=== PATIENT | female | born 1990 ===

== ENCOUNTER 2023-09-11 05:13 | Inpatient (IN) ==
[2023-09-11] MEDS ORDERED: LIDOCAINE 1% LOCAL 20 ML VIAL INFIL PRN (06:12)
[2023-09-11] MEDS ORDERED: OXYTOCIN 30 UNITS/NSS 30 UNITS/500 ML BAG IV PRN ×2 (06:12→17:52)
--- NOTE | 2023-09-11 06:48 | Labor Progress Brief Note ---
Date of Service September 11, 2023 Subjective 33yo @ 37w2d, presents with ROM at 0400. Ctx Q2-3, uncomfortable but tolerable. No VB, good FM. Preg c/b IUGR 5% and fibroids up to 6cm, posterior. Assessment & Plan (1) IUGR (intrauterine growth restriction) affecting care of mother: Plan: Augment. Epidural PRN. Admission and Anticipated Discharge Date Admission Date: September 11, 2023 Physical Exam Genitourinary: ROM clear FHT Ct 1 [place] Q2-3 Cvx /-2 VTX by US Results & Data Vital Signs (Past 12 Hours) Vital Signs Temp Pulse Resp BP O2 Del Method 09/11/23 05:42 99.0 F 18 Room Air 09/11/23 05:36 18 09/11/23 05:36 99.0 F 18 09/11/23 05:36 99.0 F 93 H 18 133/82 Coding Level of Care Code None Diagnoses IUGR (intrauterine growth restriction) affecting care of mother O36.5990
[2023-09-11 06:50] LABS: Hematocrit (blood only) 36.2 % (37.0-47.0); Hemoglobin 12.7 g/dl (12.0-16.0); Mean Corpuscular Hemoglobin 33.8 pg (25.0-34.0); Mean Corpuscular Hgb Conc 35.1 g/dL (32.0-36.0); Mean Corpuscular Volume 96.3 fL (80.0-100.0); Mean Platelet Volume 10.9 fL (9.4-12.4); Platelet Count 183 K/uL (130-400); RDW Coefficient of Variation 13.9 % (11.5-14.5); RDW Standard Deviation 48.3 fL (36.4-46.3); Red Blood Count 3.76 M/uL (4.20-5.40)
[2023-09-11] MEDS: LACTATED RINGER'S 1,000 ML IV PRN (08:45)
[2023-09-11] MEDS: OXYTOCIN 30 UNITS/NSS 30 UNITS/500 ML BAG IV PRN (08:48)
--- NOTE | 2023-09-11 08:58 | History & Physical Report ---
Date of Service September 11, 2023 Assessment & Plan (1) Uterine fibroid during , antepartum: (2) IUGR (intrauterine growth restriction) affecting care of mother: (3) Supervision of normal first : Plan 33 y/o female currently at 37w2d with an HANANE 09/30/2023 as determined by LMP, who is here following spontaneous rupture of membranes. Continue augmentation of labor Epidural PRN Monitor heart tracing, category 1 Admission and Anticipated Discharge Date Admission Date: September 11, 2023 History of Present Illness Primary Care Provider: NO PCP 33 y/o female currently at 37w2d with an HANANE 09/30/2023 as determined by LMP, who is here following spontaneous rupture of membranes. complicated by: IUGR EFW 5%, posterior fibroids up to 6cm Had regular appointments with OB (+) Contractions (+) movement (+) Fluid loss (-) Vaginal bleeding External FHT and external uterine monitors used: Category 1 tracing OB Labs: Blood Type O Positive 02/21/23 Antibody Screen NEGATIVE 02/21/23 Hemoglobin 12.2 g/dl (12.0-16.0) 07/11/23 Hematocrit 35.8 % (37.0-47.0) L 07/11/23 Mean Corpuscular Volume 87.1 fL (80.0-100.0) 02/21/23 Platelet Count 241 K/uL (130-400) 02/21/23 Rubella IgG Antibody Immune (Immune) 02/21/23 Rapid Plasma Reagin Nonreactive (Nonreactive) 02/21/23 Hepatitis B Surface Antigen. NON-REACTIVE (NON-REACTIVE) 02/21/23 Hepatitis C Antibody (EIA) NON-REACTIVE (NON-REACTIVE) 02/21/23 HIV (1&2) Ag and Ab Confirmation NON-REACTIVE (NON-REACTIVE) 02/21/23 Glucose 1 Hour 50 gm Load 132 mg/dl (70-130) H 04/18/23 OB Optional Labs: Chlamydia trachomatis RNA Not Detected (NotDetected) 02/21/23 Neisseria gonorrhoeae RNA Not Detected (NotDetected) 02/21/23 Labs Reviewed: cfdna-low risk--mln Allergies Allergy/AdvReac Type Severity Reaction Status Date / Time No Known Allergies Allergy Verified 09/11/23 05:41 Home Medications Medication Instructions Recorded Confirmed Type PNV no.[id number] 1 tab PO DAILY 02/15/23 09/11/23 History [ Gummies] Patient History Medical History Lazy eye Heart murmur Surgical History S/P eye surgery lazy eye Family History Aunt Breast cancer Grandmother (Maternal) Lung cancer Mother delivery patient born 2 months early Denies family history of Ovarian cancer Colorectal cancer Social History (Updated 02/15/23 @ 10:58 by Araceli Antonio) Smoking Status: Never smoker Do You Dip or Chew Tobacco: No; Hx Alcohol Use: No Hx Substance Use: No Preferred Language: Portuguese Communication Ability: Effective Environmental Auditor Required: No Beliefs That Will Affect Care: None marital status: marital status details: Hansel Ortiz (37) [phone] Current Living Situation: Spouse Current Living Situation Comment: House with current occupational status: employed current occupation: [employer] Patient Other Information That Helps Us Care for You: No Feels Safe at Home: Yes Safety Concerns: Feels Safe At This Time Assistive Devices: Glasses 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 No acute distress Cardiac: Regular rate and rhythm, no murmurs appreciated Respiratory: Lungs clear to auscultation bilaterally, No increased work of breathing Abdominal: Soft, non-tender. Bowel sounds present. Gravid uterus. Extremities: No lower extremity edema, calves non-tender bilaterally FHT: Category 1 tracing, baseline rate 150 with moderate variability, contractions Q2-3 minutes Results & Data Vital Signs (Past 12 Hours) Vital Signs Temp Pulse Resp BP O2 Del Method 09/11/23 07:30 18 09/11/23 07:30 36.8 C 18 Room Air 09/11/23 07:21 81 09/11/23 07:21 121/76 09/11/23 07:15 18 09/11/23 07:15 36.8 C 18 09/11/23 05:42 37.2 C 18 Room Air 09/11/23 05:36 18 09/11/23 05:36 37.2 C 18 09/11/23 05:36 37.2 C 93 H 18 133/82 Supervising Physician Co-Signing Physician Notes Resident Physician Supervision Note: I interviewed and examined the patient. Discussed with Dr. Deleon and agree with findings and plan as documented in the note. Any exceptions or clarifications are listed here: Patient presents and evaluated by Dr. Bennett with gross rom at 37 weeks. cephalic by bedside ultrasound. complicated by iugr with most recent efw 5%/AC 3% on 09/04 with s/d ratios in the 75-90%, and posterior uterine mass 6.3x3x2.4cc noted on 08/08. She was john every two to three minutes when she arrived. she has an unfavorable cervix--1cm/long per Dr. Bennett . She ordered her to start with pitocin. epidural on demand. Fetus is category one. Anticipate vaginal delivery. Peds aware. Documented By: Brenda Almazan MD, FACOG Resident Activity Tracking Resident Involvement: Resident Care Provided Care Provided: OB Delivery
[2023-09-11] MEDS ORDERED: ROPIVACAINE 0.5% PF 5 MG/ML 20 ML VIAL EPI PRN (09:35)
[2023-09-11] MEDS ORDERED: NALOXONE HCL 0.4 MG/1 ML VIAL/CARP IV PRN (09:35)
[2023-09-11] MEDS ORDERED: NALBUPHINE HCL 5 MG in SYRINGE 0 ML IV PRN (09:35)
[2023-09-11] MEDS ORDERED: LIDOCAINE 2% MPF LOCAL 5 ML VIAL EPI PRN (09:35)
[2023-09-11] MEDS ORDERED: NALOXONE HCL 1 MG in SODIUM CHLORIDE 0.9% 1,000 ML IV PRN (09:35)
[2023-09-11] MEDS ORDERED: diphenhydrAMINE 50 MG/ML VIAL IV PRN (09:35)
[2023-09-11] MEDS ORDERED: ePHEDrine sulfate 50 MG/ML AMP IV PRN (09:35)
--- NOTE | 2023-09-11 09:36 | Anesthesiology Consultation ---
Date of Service September 11, 2023 Assessment & Plan (1) Encounter for pre-operative examination: Chart Review Chart Review: Patient NOT seen in Pre Admission Testing and Acceptable Risk for Labor Epidural Consults Requested none History Height/Weight Height: 5 ft Weight: 66.678 kg Allergies Allergy/AdvReac Type Severity Reaction Status Date / Time No Known Allergies Allergy Verified 09/11/23 05:41 Medications Home Medications Medication Instructions Recorded Confirmed Last Taken PNV no.[id number] 1 tab PO DAILY 02/15/23 09/11/23 09/10/23 [ Gummies] Active Medications Generic Name Dose Route Start Last Admin Trade Name Freq PRN Reason Stop Dose Admin Lactated Ringer's 1,000 mls @ 125 mls/hr 09/11/23 06:12 09/11/23 08:45 Lr IV 09/13/23 06:11 999 mls/hr .Q8H PRN Administration L&D Protocol Protocol Oxytocin 30 units in 500 mls @ 2 mls/hr 09/11/23 06:48 09/11/23 08:48 Pitocin 30 Units/Nss IV 09/13/23 06:47 0.12 units/hr .Q24H PRN 2 mls/hr Labor Induction/Augmentation Administration Protocol 0.12 UNITS/HR Past Medical History Medical History Lazy eye Heart murmur Past Family History Family History Aunt Breast cancer Grandmother (Maternal) Lung cancer Mother delivery patient born 2 months early Denies family history of Ovarian cancer Colorectal cancer Past Surgical History Surgical History S/P eye surgery lazy eye Social History Smoking Status: Never smoker Do You Dip or Chew Tobacco: No Hx Alcohol Use: No Hx Substance Use: No Physical Exam Vital Signs Last Vital Signs Temp 98.2 F 09/11/23 07:30 Pulse 79 09/11/23 08:52 Resp 18 09/11/23 07:30 BP 124/73 09/11/23 08:52 O2 Del Method Room Air 09/11/23 07:30 Testing Laboratory Results 09/11/23 06:38 Blood Type O Positive 09/11/23 06:38 Antibody Screen NEGATIVE 09/11/23 06:38
[2023-09-11] MEDS: fentANYL 2 MCG/ML BUPIVacaine 0.125%-NSS 100ML BAG EPI PRN (09:59)
[2023-09-11] MEDS: BUPIVACAINE 0.25% PF 30 ML VIAL EPI PRN (10:01)
[2023-09-11] MEDS: LIDOCAINE 2%/EPINEPHRINE 1:200,000 20 ML PF EPI STA (10:01)
--- NOTE | 2023-09-11 11:24 | Labor Progress Brief Note ---
Date of Service September 11, 2023 Subjective comfortable with epidural. aware i am taking over care. Assessment & Plan (1) PROM (premature rupture of membranes): (2) 37 weeks gestation of : (3) IUGR (intrauterine growth restriction) affecting care of mother: Plan pitocin infusing. fhts categ 2, will need to try position change and see if fhts improve. discussed with patient. if variables persist this early in labor, will place iupc and plan amnioinfusion as next step. Admission and Anticipated Discharge Date Admission Date: September 11, 2023 Physical Exam Constitutional: WD/WN, vitals as above Genitourinary: Manual OB Exam: + cervical dilation (1-2cm), + cervical effacement (75%) and + station (no pressure of cephalic against cx. pit at 8) -2 OB Exam Monitor Tracing: + external FHT monitor used, + external uterine monitor used (q2-4), + category I, + normal FHT variability and + variable decelerations Results & Data Vital Signs (Past 12 Hours) Vital Signs Temp Pulse Resp BP Pulse Ox O2 Del Method 09/11/23 11:18 98 09/11/23 11:18 87 09/11/23 11:16 82 09/11/23 11:16 121/59 L 09/11/23 11:15 90 09/11/23 11:15 83 09/11/23 11:13 100 09/11/23 11:13 81 09/11/23 11:08 100 09/11/23 11:08 77 09/11/23 11:03 100 09/11/23 11:03 83 09/11/23 11:00 18 09/11/23 11:00 18 09/11/23 10:58 100 09/11/23 10:58 77 09/11/23 10:58 108/59 L 09/11/23 10:53 100 09/11/23 10:53 85 09/11/23 10:48 100 09/11/23 10:48 79 09/11/23 10:44 78 09/11/23 10:44 105/56 L 09/11/23 10:43 100 09/11/23 10:43 79 09/11/23 10:38 100 09/11/23 10:38 74 09/11/23 10:33 100 09/11/23 10:33 80 04/01/24 10:30 18 09/11/23 10:30 18 09/11/23 10:28 100 09/11/23 10:28 80 09/11/23 10:28 97/55 L 09/11/23 10:23 100 09/11/23 10:23 74 09/11/23 10:18 100 09/11/23 10:18 77 09/11/23 10:13 100 09/11/23 10:13 85 09/11/23 10:13 82 09/11/23 10:13 101/59 L 09/11/23 10:11 75 09/11/23 10:11 101/57 L 09/11/23 10:10 18 09/11/23 10:10 18 09/11/23 10:09 85 09/11/23 10:09 104/56 L 09/11/23 10:08 18 09/11/23 10:08 18 09/11/23 10:08 100 09/11/23 10:08 82 09/11/23 10:07 82 09/11/23 10:07 107/51 L 09/11/23 10:06 18 09/11/23 10:06 18 09/11/23 10:05 81 09/11/23 10:05 98/53 L 09/11/23 10:04 18 09/11/23 10:04 18 09/11/23 10:03 100 09/11/23 10:03 91 H 09/11/23 10:03 102/53 L 09/11/23 10:02 18 09/11/23 10:02 18 09/11/23 10:01 78 09/11/23 10:01 102/54 L 09/11/23 10:00 18 09/11/23 10:00 18 09/11/23 09:59 94 H 09/11/23 09:59 107/55 L 09/11/23 09:58 18 09/11/23 09:58 18 09/11/23 09:58 100 09/11/23 09:58 84 09/11/23 09:57 79 09/11/23 09:57 116/53 L 09/11/23 09:53 100 09/11/23 09:53 82 09/11/23 09:48 100 09/11/23 09:48 85 09/11/23 09:43 100 09/11/23 09:43 104 H 09/11/23 08:52 79 09/11/23 08:52 124/73 09/11/23 07:30 18 09/11/23 07:30 98.2 F 18 Room Air 09/11/23 07:21 81 09/11/23 07:21 121/76 09/11/23 07:15 18 09/11/23 07:15 98.2 F 18 09/11/23 05:42 99.0 F 18 Room Air 09/11/23 05:36 18 09/11/23 05:36 99.0 F 18 09/11/23 05:36 99.0 F 93 H 18 133/82 Coding Level of Care Code None Diagnoses PROM (premature rupture of membranes) O42.90 37 weeks gestation of Z3A.37 IUGR (intrauterine growth restriction) affecting care of mother O36.5990
--- NOTE | 2023-09-11 12:22 | Labor Progress Brief Note ---
Date of Service September 11, 2023 Subjective pt comfortable, persistent variables noted, remote from delivery Assessment & Plan (1) 37 weeks gestation of : (2) PROM (premature rupture of membranes): (3) IUGR (intrauterine growth restriction) affecting care of mother: Plan these are variable decels noted intrapartum, remote from delivery. pitocin infusing. will see if improve/resolve with amnioinfusion. If not, may not be abl e to proceed with induction after PROM due to intolerance. Will guide pit based on mvus. Admission and Anticipated Discharge Date Admission Date: September 11, 2023 Physical Exam Constitutional: WD/WN, vitals as above Genitourinary: Manual OB Exam: + cervical dilation (1-2cm), + cervical effacement 80% and + station -2 OB Exam Monitor Tracing: + external FHT m onitor used, + external uterine monitor used, + intra-uterine pressure catheter used (iupc placed, caused cx trauma therefore bright red blood noted), + category II, + normal FHT variability and + variable decelerations amnioinfusion begun, plan ns 500cc bolus by gravity and then 180cc/hr on pump Results & Data Vital Signs (Past 12 Hours) Vital Signs Temp Pulse Resp BP Pulse Ox O2 Del Method 09/11/23 12:13 100 09/11/23 12:13 80 09/11/23 12:13 112/66 09/11/23 12:12 87 L 09/11/23 12:12 89 09/11/23 12:08 98 09/11/23 12:08 96 H 09/11/23 12:03 98 09/11/23 12:03 82 09/11/23 11:59 77 09/11/23 11:59 112/63 09/11/23 11:58 100 09/11/23 11:58 78 09/11/23 11:53 99 09/11/23 11:53 76 09/11/23 11:48 100 09/11/23 11:48 75 09/11/23 11:43 100 09/11/23 11:43 76 09/11/23 11:43 112/59 L 09/11/23 11:38 100 09/11/23 11:38 80 09/11/23 11:35 92 09/11/23 11:35 79 09/11/23 11:33 100 09/11/23 11:33 81 09/11/23 11:30 18 09/11/23 11:30 98.2 F 18 09/11/23 11:30 18 09/11/23 11:30 18 09/11/23 11:28 100 09/11/23 11:28 83 09/11/23 11:28 78 09/11/23 11:28 120/61 09/11/23 11:23 82 09/11/23 11:18 98 09/11/23 11:18 87 09/11/23 11:16 82 09/11/23 11:16 121/59 L 09/11/23 11:15 90 09/11/23 11:15 83 09/11/23 11:13 100 09/11/23 11:13 81 09/11/23 11:08 100 09/11/23 11:08 77 09/11/23 11:03 100 09/11/23 11:03 83 09/11/23 11:00 18 09/11/23 11:00 18 09/11/23 10:58 100 09/11/23 10:58 77 09/11/23 10:58 108/59 L 09/11/23 10:53 100 09/11/23 10:53 85 09/11/23 10:48 100 09/11/23 10:48 79 09/11/23 10:44 78 09/11/23 10:44 105/56 L 09/11/23 10:43 100 09/11/23 10:43 79 09/11/23 10:38 100 09/11/23 10:38 74 09/11/23 10:33 100 09/11/23 10:33 80 09/11/23 10:30 18 09/11/23 10:30 18 09/11/23 10:28 100 09/11/23 10:28 80 09/11/23 10:28 97/55 L 09/11/23 10:23 100 09/11/23 10:23 74 09/11/23 10:18 100 09/11/23 10:18 77 09/11/23 10:13 100 09/11/23 10:13 85 09/11/23 10:13 82 09/11/23 10:13 101/59 L 09/11/23 10:11 75 09/11/23 10:11 101/57 L 09/11/23 10:10 18 09/11/23 10:10 18 09/11/23 10:09 85 09/11/23 10:09 104/56 L 09/11/23 10:08 18 09/11/23 10:08 18 09/11/23 10:08 100 09/11/23 10:08 82 09/11/23 10:07 82 09/11/23 10:07 107/51 L 09/11/23 10:06 18 09/11/23 10:06 18 09/11/23 10:05 81 09/11/23 10:05 98/53 L 09/11/23 10:04 18 09/11/23 10:04 18 09/11/23 10:03 100 09/11/23 10:03 91 H 09/11/23 10:03 102/53 L 09/11/23 10:02 18 09/11/23 10:02 18 09/11/23 10:01 78 09/11/23 10:01 102/54 L 09/11/23 10:00 18 09/11/23 10:00 18 09/11/23 09:59 94 H 09/11/23 09:59 107/55 L 09/11/23 09:58 18 09/11/23 09:58 18 09/11/23 09:58 100 09/11/23 09:58 84 09/11/23 09:57 79 09/11/23 09:57 116/53 L 09/11/23 09:53 100 09/11/23 09:53 82 09/11/23 09:48 100 09/11/23 09:48 85 09/11/23 09:43 100 09/11/23 09:43 104 H 09/11/23 09:30 18 09/11/23 09:30 98.2 F 18 09/11/23 08:52 79 09/11/23 08:52 124/73 09/11/23 07:30 18 09/11/23 07:30 98.2 F 18 Room Air 09/11/23 07:21 81 09/11/23 07:21 121/76 09/11/23 07:15 18 09/11/23 07:15 98.2 F 18 09/11/23 05:42 99.0 F 18 Room Air 09/11/23 05:36 18 09/11/23 05:36 99.0 F 18 09/11/23 05:36 99.0 F 93 H 18 133/82 Coding Level of Care Code None Diagnoses 37 weeks gestation of Z3A.37 PROM (premature rupture of membranes) O42.90 IUGR (intrauterine growth restriction) affecting care of mother O36.5990
[2023-09-11] MEDS: BUPIVACAINE 0.25% PF 30 ML VIAL EPI STA (12:27)
[2023-09-11] MEDS: fentaNYL citrate PF 100 MCG/2 ML VIAL ONE (12:27)
[2023-09-11] MEDS: ePHEDrine sulfate 50 MG/ML AMP ONE (12:27)
[2023-09-11] MEDS: LIDOCAINE 2%/EPINEPHRINE 1:200,000 20 ML PF ONE (12:27)
[2023-09-11] MEDS: BUPIVACAINE 0.25% PF 30 ML VIAL ONE (12:27)
[2023-09-11] MEDS: fentANYL 2 MCG/ML BUPIVacaine 0.125%-NSS 100ML BAG ONE (12:27)
[2023-09-11] MEDS: SODIUM CHLORIDE 0.9% PF INJ 10 ML VIAL ONE (12:27)
[2023-09-11] MEDS: fentaNYL citrate PF 100 MCG/2 ML VIAL EPI STA (12:28)
[2023-09-11] MEDS: SODIUM CHLORIDE 0.9% PF INJ 10 ML VIAL EPI STA (12:28)
[2023-09-11] MEDS ORDERED: NURSING L&D Epidural Breakthrough Pain Update ONE (14:22)
[2023-09-11] MEDS: SODIUM CHLORIDE 0.9% PF INJ 10 ML VIAL EPI PRN (14:38)
[2023-09-11] MEDS: fentaNYL citrate PF 100 MCG/2 ML VIAL EPI PRN (14:39)
--- NOTE | 2023-09-11 14:40 | Anesthesia Procedure Note ---
Date of Service September 11, 2023 Anesthesia Epidural Re-Dose Vital Signs Temp Pulse Resp BP Pulse Ox O2 Del Method 98.2 F 77 18 121/57 L 100 Room Air 09/11/23 11:30 09/11/23 14:38 09/11/23 14:00 09/11/23 14:29 09/11/23 14:38 09/11/23 07:30 Notes Pain Intensity: 6 Dilatation (cm): 7.0 Effacement (%): 100 Called by nursing to evaluate epidural as the patient is having increased pain. The epidural was re-dosed with the following medications (all medications via epidural route) after negative aspiration of the epidural catheter for CSF/HEME. 0.125% Bupivacaine (8ml) with 100 mcg Fentanyl After Epidural Re-Dose Mental Status: alert / awake / arousable Pain: improving with treatment Airway Patency, RR, SpO2: stable & adequate BP & HR: stable & adequate
--- NOTE | 2023-09-11 16:24 | Labor Progress Brief Note ---
Date of Service September 11, 2023 Subjective pt feels some pressure Assessment & Plan (1) 37 weeks gestation of : (2) PROM (premature rupture of membranes): (3) IUGR (intrauterine growth restriction) affecting care of mother: Plan begin 2nd stage. fhts categ 1. Admission and Anticipated Discharge Date Admission Date: September 11, 2023 Physical Exam Constitutional: WD/WN, vitals as above Genitourinary: Manual OB Exam: + cervical dilation 10 cm, + cervical effacement 100% and + station + 3 OB Exam Monitor Tracing: + external FHT monitor used, + external uterine monitor used (q2 pit at 6. ), + category I and + normal FHT variability Results & Data Vital Signs (Past 12 Hours) Vital Signs Temp Pulse Resp BP Pulse Ox O2 Del Method 09/11/23 16:18 100 09/11/23 16:18 113 H 09/11/23 16:13 100 09/11/23 16:13 85 09/11/23 16:13 120/70 09/11/23 16:08 100 09/11/23 16:08 87 09/11/23 16:03 100 09/11/23 16:03 82 09/11/23 16:00 18 09/11/23 16:00 18 09/11/23 15:59 78 09/11/23 15:59 121/73 09/11/23 15:58 100 09/11/23 15:58 83 09/11/23 15:53 100 09/11/23 15:53 81 09/11/23 15:48 100 09/11/23 15:48 78 09/11/23 15:45 78 09/11/23 15:45 121/76 09/11/23 15:43 100 09/11/23 15:43 81 09/11/23 15:38 100 09/11/23 15:38 79 09/11/23 15:33 100 09/11/23 15:33 88 09/11/23 15:30 18 09/11/23 15:30 98.2 F 18 09/11/23 15:29 75 09/11/23 15:29 112/60 09/11/23 15:28 100 09/11/23 15:28 78 09/11/23 15:23 100 09/11/23 15:23 81 09/11/23 15:18 100 09/11/23 15:18 80 09/11/23 15:14 76 09/11/23 15:14 110/58 L 09/11/23 15:13 100 09/11/23 15:13 81 09/11/23 15:08 100 09/11/23 15:08 81 09/11/23 15:03 100 09/11/23 15:03 81 09/11/23 15:00 18 09/11/23 15:00 18 09/11/23 14:59 72 09/11/23 14:59 108/55 L 09/11/23 14:58 100 09/11/23 14:58 75 09/11/23 14:53 100 09/11/23 14:53 72 09/11/23 14:48 100 09/11/23 14:48 70 09/11/23 14:43 100 09/11/23 14:43 72 09/11/23 14:43 117/58 L 09/11/23 14:38 100 09/11/23 14:38 77 09/11/23 14:33 100 09/11/23 14:33 83 09/11/23 14:30 18 09/11/23 14:30 18 09/11/23 14:29 69 09/11/23 14:29 121/57 L 09/11/23 14:28 100 09/11/23 14:28 72 09/11/23 14:23 100 09/11/23 14:23 76 09/11/23 14:18 100 09/11/23 14:18 79 09/11/23 14:15 93 09/11/23 14:15 77 09/11/23 14:13 100 09/11/23 14:13 77 09/11/23 14:08 98 09/11/23 14:08 78 09/11/23 14:05 94 09/11/23 14:05 83 09/11/23 14:03 99 09/11/23 14:03 79 09/11/23 14:00 18 09/11/23 14:00 18 09/11/23 13:59 70 09/11/23 13:59 129/76 09/11/23 13:58 98 09/11/23 13:58 84 09/11/23 13:53 98 09/11/23 13:53 77 09/11/23 13:48 98 09/11/23 13:48 88 09/11/23 13:43 100 09/11/23 13:43 88 09/11/23 13:43 84 09/11/23 13:43 118/75 09/11/23 13:38 98 09/11/23 13:38 78 09/11/23 13:33 99 09/11/23 13:33 79 09/11/23 13:30 18 09/11/23 13:30 18 09/11/23 13:29 76 09/11/23 13:29 112/74 09/11/23 13:28 100 09/11/23 13:28 84 09/11/23 13:28 114/75 09/11/23 13:23 99 09/11/23 13:23 77 09/11/23 13:18 98 09/11/23 13:18 83 09/11/23 13:13 99 09/11/23 13:13 78 09/11/23 13:13 75 09/11/23 13:13 109/69 09/11/23 13:08 100 09/11/23 13:08 80 09/11/23 13:03 99 09/11/23 13:03 86 09/11/23 12:58 100 09/11/23 12:58 84 09/11/23 12:58 114/71 09/11/23 12:53 100 09/11/23 12:53 77 09/11/23 12:48 100 09/11/23 12:48 77 09/11/23 12:43 100 09/11/23 12:43 76 09/11/23 12:43 111/65 09/11/23 12:38 100 09/11/23 12:38 88 09/11/23 12:33 100 09/11/23 12:33 105 H 09/11/23 12:28 100 09/11/23 12:28 74 09/11/23 12:28 105/59 L 09/11/23 12:23 100 09/11/23 12:23 87 09/11/23 12:18 100 09/11/23 12:18 82 09/11/23 12:13 100 09/11/23 12:13 80 09/11/23 12:13 112/66 09/11/23 12:12 87 L 09/11/23 12:12 89 09/11/23 12:08 98 09/11/23 12:08 96 H 09/11/23 12:03 98 09/11/23 12:03 82 09/11/23 12:00 18 09/11/23 12:00 18 09/11/23 11:59 77 09/11/23 11:59 112/63 09/11/23 11:58 100 09/11/23 11:58 78 09/11/23 11:53 99 09/11/23 11:53 76 09/11/23 11:48 100 09/11/23 11:48 75 09/11/23 11:43 100 09/11/23 11:43 76 09/11/23 11:43 112/59 L 09/11/23 11:38 100 09/11/23 11:38 80 09/11/23 11:35 92 09/11/23 11:35 79 09/11/23 11:33 100 09/11/23 11:33 81 09/11/23 11:30 18 09/11/23 11:30 98.2 F 18 09/11/23 11:30 18 09/11/23 11:30 18 09/11/23 11:28 100 09/11/23 11:28 83 09/11/23 11:28 78 09/11/23 11:28 120/61 09/11/23 11:23 82 09/11/23 11:18 98 09/11/23 11:18 87 09/11/23 11:16 82 09/11/23 11:16 121/59 L 09/11/23 11:15 90 09/11/23 11:15 83 09/11/23 11:13 100 09/11/23 11:13 81 09/11/23 11:08 100 09/11/23 11:08 77 09/11/23 11:03 100 09/11/23 11:03 83 09/11/23 11:00 18 09/11/23 11:00 18 09/11/23 10:58 100 09/11/23 10:58 77 09/11/23 10:58 108/59 L 09/11/23 10:53 100 09/11/23 10:53 85 09/11/23 10:48 100 09/11/23 10:48 79 09/11/23 10:44 78 09/11/23 10:44 105/56 L 09/11/23 10:43 100 09/11/23 10:43 79 09/11/23 10:38 100 09/11/23 10:38 74 09/11/23 10:33 100 09/11/23 10:33 80 09/11/23 10:30 18 09/11/23 10:30 18 09/11/23 10:28 100 09/11/23 10:28 80 09/11/23 10:28 97/55 L 09/11/23 10:23 100 09/11/23 10:23 74 09/11/23 10:18 100 09/11/23 10:18 77 09/11/23 10:13 100 09/11/23 10:13 85 09/11/23 10:13 82 09/11/23 10:13 101/59 L 09/11/23 10:11 75 09/11/23 10:11 101/57 L 09/11/23 10:10 18 09/11/23 10:10 18 09/11/23 10:09 85 09/11/23 10:09 104/56 L 09/11/23 10:08 18 09/11/23 10:08 18 09/11/23 10:08 100 09/11/23 10:08 82 09/11/23 10:07 82 09/11/23 10:07 107/51 L 09/11/23 10:06 18 09/11/23 10:06 18 09/11/23 10:05 81 09/11/23 10:05 98/53 L 09/11/23 10:04 18 09/11/23 10:04 18 09/11/23 10:03 100 09/11/23 10:03 91 H 09/11/23 10:03 102/53 L 09/11/23 10:02 18 09/11/23 10:02 18 09/11/23 10:01 78 09/11/23 10:01 102/54 L 09/11/23 10:00 18 09/11/23 10:00 18 09/11/23 09:59 94 H 09/11/23 09:59 107/55 L 09/11/23 09:58 18 09/11/23 09:58 18 09/11/23 09:58 100 09/11/23 09:58 84 09/11/23 09:57 79 09/11/23 09:57 116/53 L 09/11/23 09:53 100 09/11/23 09:53 82 09/11/23 09:48 100 09/11/23 09:48 85 09/11/23 09:43 100 09/11/23 09:43 104 H 09/11/23 09:30 18 09/11/23 09:30 98.2 F 18 09/11/23 08:52 79 09/11/23 08:52 124/73 09/11/23 07:30 18 09/11/23 07:30 98.2 F 18 Room Air 09/11/23 07:21 81 09/11/23 07:21 121/76 09/11/23 07:15 18 09/11/23 07:15 98.2 F 18 09/11/23 05:42 99.0 F 18 Room Air 09/11/23 05:36 18 09/11/23 05:36 99.0 F 18 09/11/23 05:36 99.0 F 93 H 18 133/82 Coding Level of Care Code None Diagnoses 37 weeks gestation of Z3A.37 PROM (premature rupture of membranes) O42.90 IUGR (intrauterine growth restriction) affecting care of mother O36.5990
--- NOTE | 2023-09-11 17:50 | Delivery Summary ---
Vaginal Delivery Summary Date of Service September 11, 2023 Vaginal Delivery Summary and 2nd Degree LAC The patient dilated to complete and pushed to deliver a viable female infant Apgars 8 and 9 via over 2nd degree perineal laceration. Mouth and nose bulb suctioned at perineum. Shoulders and body delivered with ease. Infant was vigorous and crying at . Cord clamped at 30+ seconds of life and infant to maternal abdomen where the cord was then doubly clamped and cut. Placenta delivered spontaneously and intact, three-vessel cord. Hemostasis achieved with dilute pitocin and uterine massage. Laceration repaired in usual fashion with 3-0 vicryl. Cervix and sulci intact. QBL 285 cc. Mother and baby stable in recovery. [facility] Vaginal Delivery Charge Delivery Type Details: and 2nd Degree LAC
[2023-09-11] MEDS ORDERED: DIPHTHER/TETAN/PERTUS Vaccine (Tdap, Adol/Adult) 0.5mL IM ONE (17:52)
[2023-09-11] MEDS ORDERED: bisacodyL 10 MG SUPP PR PRN (17:52)
[2023-09-11] MEDS ORDERED: HYDROCORTISONE ACETATE 25 MG SUPP PR PRN (17:52)
[2023-09-11] MEDS ORDERED: ACETAMINOPHEN 325 MG TAB PO PRN (17:52)
[2023-09-11] MEDS ORDERED: oxyCODONE/ACETAMINOPHEN 5mg/325mg TAB PO PRN (17:52)
[2023-09-11] MEDS: OXYTOCIN 20 UNITS/LR 1,002 ML IV SCH (18:21)
[2023-09-11] MEDS: BENZOCAINE 20% SPRY 85 APPLN/85 GM CAN EXT PRN (19:21)
[2023-09-11] MEDS: IBUPROFEN 600 MG TAB PO PRN (19:21)
--- NOTE | 2023-09-11 19:24 | Anesthesia Procedure Note ---
Date of Service September 11, 2023 Anesthesia Post Epidural Note Vital Signs Vital Signs: Temp Pulse Resp BP Pulse Ox O2 Del Method 98.6 F 100 H 18 130/75 99 Room Air 09/11/23 17:45 09/11/23 19:13 09/11/23 18:45 09/11/23 19:13 09/11/23 17:33 09/11/23 07:30 Pain Intensity Abdomen: Pain Intensity: 8 Notes Mental Status: alert / awake / arousable and participated in evaluation Nausea / Vomiting: adequately controlled Pain: adequately controlled Airway Patency, RR, SpO2: stable & adequate BP & HR: stable & adequate Hydration State: stable & adequate Neuraxial Anesthesia: was administered and sensory block is resolving Anesthetic Complications: no major complications apparent and Pt Satisfied with anesthetic care Epidural: Removed without complications and With tip intact
--- NOTE | 2023-09-12 07:10 | Obstetrical Progress Note ---
Date of Service <Bharat Deleon DO - Last Filed: 09/12/23 07:52> September 12, 2023 Assessment & Plan <Bharat Deleon DO - Last Filed: 09/12/23 07:52> (1) Encounter for assessment: Plan 33 y/o PPD#1 Eating well, ambulating well, will continue to monitor for urinary retention - consider Sepulveda placement if requiring repeated straight cath Vitals reviewed, WNL Pain well controlled with Motrin Routine post care - OOB, ambulation, diet progression as tolerated Will have 6 week follow up with Dr. Perez <Meka Perez MD, FACOG - Last Filed: 09/12/23 08:16> (1) Encounter for assessment: Subjective <Bharat Deleon DO - Last Filed: 09/12/23 07:52> Ambulation: ambulating normally Voiding: voiding difficulty (required straight cath x1, has not voided since ) Passing Gas:: Yes Diet Tolerance:: regular diet Lochia:: Moderate Feeding Type:: breast feeding Pain well controlled with Motrin Review of Systems -Denies fever or chills -Denies dyspnea, chest pain, or palpitations -Denies dysuria -Denies headache or changes in vision Physical Exam <Bharat Deleon DO - Last Filed: 09/12/23 07:52> General: Alert and oriented. No acute distress Cardiac: Regular rate and rhythm, no murmurs appreciated Respiratory: Lungs clear to auscultation bilaterally, No increased work of breathing Abdominal: Soft, non-tender, non-distended. Bowel sounds present. Uterus: Uterine fundus firm, palpable below umbilicus Extremities: No lower extremity edema, calves non-tender bilaterally Results & Data <Bharat Deleon DO - Last Filed: 09/12/23 07:52> Vital Signs (Past 12 Hours) Vital Signs Temp Pulse Pulse Resp BP BP O2 Del Method 09/12/23 03:55 36.8 C 74 16 104/68 Room Air 09/11/23 23:00 36.7 C 85 16 100/63 Room Air 09/11/23 20:15 37.2 C 85 14 115/71 Room Air 09/11/23 20:05 37.5 C 100 H 115/66 09/11/23 19:43 100 H 09/11/23 19:43 115/66 09/11/23 19:28 105 H 09/11/23 19:28 123/70 09/11/23 19:15 37 C 100 H 130/75 09/11/23 19:13 100 H 09/11/23 19:13 130/75 Supervising Physician <Meka Perez MD, FACOG - Last Filed: 09/12/23 08:16> Co-Signing Physician Notes Resident Physician Supervision Note: I was present with Dr. Deleon during the history and exam. I discussed the case with the resident and agree with the findings and plan as documented in the note. Any exceptions or clarifications are listed here: pt has not voided spont yet, had straight cath x 2 thus far. needs to hydrate. if needed, may need sepulveda decompression. eating, ambulating well. breast feeding. no pain issues. abd soft ff 2 down nt, ext nt calves. ppd #1 s/p routine care. rh pos, ri. Documented By: Meka Perez MD, FACOG Resident Activity Tracking <Bharat Deleon, DO - Last Filed: 09/12/23 07:52> Resident Involvement: Resident Care Provided Care Provided: OB Delivery
[2023-09-12] MEDS: PRENATAL VITAMIN 1 TAB PO SCH (08:59)
[2023-09-12] MEDS: DOCUSATE SODIUM 100 MG CAP PO SCH (09:00)
--- NOTE | 2023-09-13 06:09 | Obstetrical Progress Note ---
Date of Service <Bharat Deleon DO - Last Filed: 09/13/23 06:09> September 13, 2023 Assessment & Plan <Bharat Deleon - Last Filed: 09/13/23 06:09> (1) Encounter for assessment: Plan 33 y/o PPD#2 Eating well, ambulating well, now voiding spontaneously without difficulty Vitals reviewed, WNL Pain well controlled with Motrin Routine post care - OOB, ambulation, diet progression as tolerated Will have 6 week follow up with Dr. Perez <Sandra Villarreal MD - Last Filed: 09/13/23 07:15> (1) Encounter for assessment: Subjective <Bharat Deleon DO - Last Filed: 09/13/23 06:09> Ambulation: ambulating normally Voiding: no voiding problems Passing Gas:: Yes Diet Tolerance:: regular diet Lochia:: Moderate Feeding Type:: breast feeding Pain well controlled with Motrin Review of Systems -Denies fever or chills -Denies dyspnea, chest pain, or palpitations -Denies dysuria -Denies headache or changes in vision Physical Exam <Bharat Deleon DO - Last Filed: 09/13/23 06:09> General: Alert and oriented. No acute distress Cardiac: Regular rate and rhythm, no murmurs appreciated Respiratory: Lungs clear to auscultation bilaterally, No increased work of breathing Abdominal: Soft, non-tender, non-distended. Bowel sounds present. Uterus: Uterine fundus firm, palpable below umbilicus Extremities: No lower extremity edema, calves non-tender bilaterally Results & Data <Bharat Deleon DO - Last Filed: 09/13/23 06:09> Vital Signs (Past 12 Hours) Vital Signs Temp Pulse Resp BP Pulse Ox O2 Del Method 09/13/23 00:13 36.8 C 88 18 108/71 98 Room Air 09/12/23 20:20 36.5 C 112 H 18 127/81 96 Room Air Supervising Physician <Sandra Villarreal MD - Last Filed: 09/13/23 07:15> Co-Signing Physician Notes Resident Physician Supervision Note: I interviewed and examined the patient. Discussed with Dr. Deleon and agree with findings and plan as documented in the note. Any exceptions or clarifications are listed here: PP2 s/p , doing well. Voiding w/o issues. VSS, exam benign and wnl. Stable for dc Documented By: Sadnra Villarreal MD Resident Activity Tracking <Bharat Deleon DO - Last Filed: 09/13/23 06:09> Resident Involvement: Resident Care Provided Care Provided: OB Delivery
== END 2023-09-13 11:51 | disposition home or self-care (01) | DRG 807 ==
LOC: OPB 05:13 → 4S1 05:17 → 4E2 20:00